=== PATIENT | female | born 1955 | race Caucasian/White ===

== ENCOUNTER → 2024-02-05 14:36 | Outpatient (REF) | payer MEDICARE, OTHER, SELFPAY | LOC: WDC 14:36 | PROVIDERS: ATTENDING PHYSICIAN Nurse Practitioner Family; FAMILY PHYSICIAN Family Medicine | DX: Z12.31 Encounter for screening mammogram for malignant neoplasm of breast (principal) | CPT/HCPCS: 77063; 77067 ==

== ENCOUNTER → 2024-10-15 10:49 | Outpatient (REF) | payer MEDICARE, OTHER, SELFPAY | LOC: RAD 10:49 | PROVIDERS: ATTENDING PHYSICIAN Nurse Practitioner Family; FAMILY PHYSICIAN Family Medicine | DX: Z78.0 Asymptomatic menopausal state (principal) | CPT/HCPCS: 77080 ==

== ENCOUNTER → 2025-06-17 14:58 | Outpatient (REF) | payer MEDICARE, OTHER, SELFPAY | LOC: WDC 14:58 | PROVIDERS: ATTENDING PHYSICIAN Obstetrics & Gynecology; FAMILY PHYSICIAN Nurse Practitioner Family | DX: Z12.31 Encounter for screening mammogram for malignant neoplasm of breast (principal) | CPT/HCPCS: 77063; 77067 ==